=== PATIENT | male | born 1945 | race Caucasian/White ===

== ENCOUNTER 2017-09-18 21:18 | Inpatient (IN) | payer MEDICARE ==
[~2017-09-18] VITALS: Ht 177.8 cm; Wt 100.0 kg
[~2017-09-18 21:18] MED LIST: ATIVAN0.5 MG PO; BAYER CHEWABLE81 MG PO; BUMEX 1 MG TAB1 MG PO; DEPAKOTE ER500 MG PO; DEPAKOTE SPRIN125 MG PO; FEXOFENADINE HC60 MG PO; IBUPROFEN400 MG PO; LISINOPRIL10 MG PO; MYSOLINE 50 MG50 MG PO; SEROQUEL100 MG PO; SEROQUEL25 MG PO; SEROQUEL50 MG PO; SYNTHROID25 MCG PO; TRILEPTAL300 MG PO; VITAMIN B-121000 MCG PO; VITAMIN D5000 UNIT PO; ZEBETA5 MG PO; ZYPREXA ZYDI5 MG/TAB PO
[2017-09-18 21:53] LABS: BASOPHILS 0.3 % (0-2); EOSINOPHILS 0.1 % (0-7); HEMATOCRIT 40.6 % (42.0-54.0); HEMOGLOBIN 13.1 g/dL (13.5-17.5); LYMPHOCYTES 9.3 % (15-50); MCHC 32.3 g/dL (31.0-37.0); MEAN PLATELET VOLUME 11.4 fL (7.4-10.4); MONOCYTES 15.7 % (2-11); NEUTROPHILS 71.6 % (40-80); PLATELET COUNT 166 10x3/uL (130-400); RBC 4.23 10x6/uL (4.20-6.10); RDW 17.9 % (11.5-14.5); WBC 19.3 10x3/uL (4.8-10.8)
[2017-09-18 22:16] LABS: ALBUMIN 2.2 g/dL (3.4-5.0); ALKALINE PHOSPHATASE 56 U/L (46-116); ALT (SGPT) 14 U/L (10-68); BILIRUBIN - TOTAL 0.35 mg/dL (0.2-1.3); CALC OSMOLALITY 321 mosm/kg (275-300); CALCIUM 8.1 mg/dL (8.5-10.1); CARBON DIOXIDE 29.2 mmol/L (21.0-32.0); CREATINE KINASE 145 UL (21-232); GLUCOSE 133 mg/dL (74-106); LIPASE 88 U/L (73-393); PRO BNP 855 pg/mL (0-125); SODIUM 153 mmol/L (136-145); TROPONIN-I < 0.017 ng/mL (0.000-0.060); UREA NITROGEN 58 mg/dL (7-18); eGFR NON AFRICAN AMERICAN 35 mL/min (90-120)
[2017-09-18 22:19] LABS: CHLORIDE - SERUM 122 mmol/L (98-107); POTASSIUM - SERUM 2.9 mmol/L (3.5-5.1)
[2017-09-19 03:37] VITALS: Ht 177.8 cm; Wt 100.0 kg
== END 2017-09-19 08:11 | DRG 189 ==
LOC: D.ER 21:18 → D.SDCHOLD 09-19 02:20 → D.MS 09-19 02:36
PROVIDERS: Family Medicine
DX: J96.00 Acute respiratory failure, unspecified whether with hypoxia or hypercapnia (principal); E87.4 Mixed disorder of acid-base balance; Z66 Do not resuscitate; Z51.5 Encounter for palliative care; I11.0 Hypertensive heart disease with heart failure; I50.9 Heart failure, unspecified; F03.90 Unspecified dementia, unspecified severity, without behavioral disturbance, psychotic disturbance, mood disturbance, and anxiety